=== PATIENT | female | born 1955 | race Hispanic/Latino ===

== ENCOUNTER 2017-01-16 12:48 | Emergency (ER) | payer MEDICARE | END 2017-01-16 14:43 | disposition left against medical advice (07) | LOC: ERS 12:48 | DX: Z53.21 Procedure and treatment not carried out due to patient leaving prior to being seen by health care provider (principal) ==

== ENCOUNTER 2017-11-20 13:43 | Outpatient (CLI) | payer MEDICARE | END 2017-11-20 13:44 | disposition home or self-care (01) | LOC: BICMAMMO 13:43 | PROVIDERS: ATTEND Internal Medicine | DX: Z12.31 Encounter for screening mammogram for malignant neoplasm of breast (principal); N64.89 Other specified disorders of breast | CPT/HCPCS: 77063; 77067 ==

== ENCOUNTER 2017-12-21 12:24 | Outpatient (CLI) | payer MEDICARE | END 2017-12-21 12:25 | disposition home or self-care (01) | LOC: BICMAMMO 12:24 | PROVIDERS: ATTEND Internal Medicine | DX: R92.2 Inconclusive mammogram (principal) | CPT/HCPCS: 77065; G0279 ==

== ENCOUNTER 2018-09-04 11:18 | Observation (INO) | payer MEDICARE ==
[2018-09-04 12:07] LABS: #Eosinphils 0.1 thou/uL (0.0-0.7); #Lymphocytes 1.8 thou/uL (1.20-3.40); #Monocytes 0.5 thou/uL (0.11-0.59); %Basophils 0.3 % (0.0-1.0); %Eosinophils 0.7 % (0.0-10.0); %Lymphocytes 18.9 % (21.0-51.0); %Monocytes 5.1 % (0.0-10.0); Hemoglobin 16.3 g/dL (12.0-16.0); Mean Corpuscular HGB CONC 33.7 g/dL (32.0-36.0); Mean Corpuscular Hemoglobin 31.7 pg (27.0-31.0); Mean Corpuscular Volume 94.3 fL (78.0-98.0); Mean Platelet Volume 8.2 fL (7.4-10.4); Platelet Count 181 thou/uL (130-400); RBC Distribution Width 12.2 % (11.5-14.5); Red Blood Cell (RBC) Count 5.13 mill/uL (4.20-5.40); White Blood Cell (WBC) Count 9.3 thou/uL (4.8-10.8)
[2018-09-04] MEDS ORDERED: diphenhydrAMINE 50 MG/ML VIAL ONE (12:26)
[2018-09-04] MEDS ORDERED: Prochlorperazine Edisylate 10 MG in Sodium Chloride 0.9% 50 ML IVPB SCH (12:30)
[2018-09-04 12:31] LABS: ALT (SGPT) 32 U/L (8-55); AST (SGOT) 31 U/L (5-34); Albumin 4.2 g/dL (3.4-4.8); Alkaline Phosphatase 80 U/L (40-150); Anion Gap 13 mmol/L (10-20); BUN (Urea Nitrogen) 17 mg/dL (9.8-20.1); Bilirubin, Total 0.5 mg/dL (0.2-1.2); Calc. Creatinine Clearance 0 mL/min (70-130); Calcium 10.1 mg/dL (7.8-10.44); Carbon Dioxide 23 mmol/L (23-31); Chloride 104 mmol/L (98-107); Estimated GFR-MDRD 67; Globulin 4.1 g/dL (2.4-3.5); Glucose 114 mg/dL (80-115); Potassium 3.8 mmol/L (3.5-5.1); Protein, Total 8.3 g/dL (6.0-8.3); Sodium 136 mmol/L (136-145)
--- NOTE | 2018-09-04 13:13 | CT ---
CT BRAIN WITHOUT CONTRAST: HISTORY: Headache. FINDINGS: No evidence of infarct, hemorrhage, midline shift, or abnormal extraaxial fluid collections is seen. The ventricular size is normal, and the basilar cisterns are patent. The bony calvarium is intact. The visualized paranasal sinuses and mastoid air cells are well aerated. IMPRESSION: No CT evidence of acute intracranial process. POS: OFF
[2018-09-04] MEDS ORDERED: Nitroglycerin 2% Ointment 1 INCH/1 GM Packet ONE (13:34)
[2018-09-04] MEDS ORDERED: Acetaminophen 500 MG TAB ONE (13:34)
[2018-09-04 14:01] LABS: Bilirubin Negative (Negative); Blood, Urine Small (Negative); Glucose, Urine (Dipstick) Negative (Negative); Leukocyte Negative (Negative); Nitrite Positive (Negative); Protein, Urine (Dipstick) > or equal to 300 mg/dL (Neg-Trace); Urobilinogen 0.2 mg/dL (Less than 2)
[2018-09-04] MEDS ORDERED: Aspirin Chewable 81 MG TAB ONE (14:05)
--- NOTE | 2018-09-04 14:11 | RAD ---
PORTABLE CHEST ONE VIEW: 09/04/18 at 1:26 p.m. HISTORY: Chest pain, headache, high blood pressure. FINDINGS: Comparison is made with exam of 07/01/16. The heart size is normal. The aorta is tortuous. The lungs are expanded without focal areas of consol idation, pneumothoraces, or pleural effusions. IMPRESSION: No radiographic evidence of acute cardiopulmonary process. POS: OFF
[2018-09-04 14:12] LABS: Clarity Cloudy (Clear)
[2018-09-04 14:14] LABS: Mucous/LPF Rare LPF (<2+); Squamous Epithelial 0-3 HPF (0-3); WBC/HPF 0-3 HPF (0-3)
[2018-09-04 14:23] LABS: Bacteria/HPF 4+ HPF (None Seen)
[2018-09-04] MEDS ORDERED: cefTRIAXone\\ROCEPHIN 1 GM VIAL ONE (14:56)
[2018-09-04] MEDS ORDERED: Sodium Chloride 0.9% 100 ML ONE (14:56)
[2018-09-04] MEDS ORDERED: hydrALAZINE 20 MG/ML VIAL ONE (14:56)
[2018-09-04] MEDS ORDERED: hydrALAZINE 20 MG/ML VIAL SLOW IVP SCH (15:00)
[2018-09-04] MEDS ORDERED: cefTRIAXone\\ROCEPHIN 1 GM in Sodium Chloride 0.9% 100 ML IVPB SCH (15:00)
[2018-09-04 16:15] LABS: Troponin I Less than 0.010 ng/mL (< 0.028)
[2018-09-04 16:54] VITALS: BMI 29.9
[2018-09-04] MEDS ORDERED: Acetaminophen 325 MG TAB PO PRN (18:09)
[2018-09-04] MEDS ORDERED: Ondansetron PF 4 MG/2 ML Vial IVP PRN (18:10)
[2018-09-04] MEDS ORDERED: Amlodipine 10 MG TAB PO SCH (18:15)
[2018-09-04 19:10] LABS: Troponin I Less than 0.010 ng/mL (< 0.028)
--- NOTE | 2018-09-05 00:25 | HP ---
CHIEF COMPLAINT: Elevated blood pressure, chest tightness, and headache. HISTORY OF PRESENT ILLNESS: Ms. Patel is a 63-year-old female with past medical history of hypertension, hyperlipidemia, and anxiety disorder, came because of elevated blood pressure and also headache and felt an episode of chest tightness in the retrosternal area, not associated with any diaphoresis, but associated with some nausea and shortness of breath. The patient's headache started a week ago, constant, also has some photophobia. The patient was recently started on amlodipine for blood pressure, but she did not get the medication. She just got only 2 doses of her at home. Her blood pressure was very high and headache was bothering and she has chest tightness. She decided to go to hospital. In the ER, the patient was evaluated and found to have markedly elevated blood pressure of 201/121. The patient received a dose of hydralazine, aspirin, and a nitroglycerin and blood pressure came down. The patient also was found to urine tract infection and she was given a dose of Rocephin. In view of chest tightness and uncontrolled hypertension, she is being admitted for further evaluation and management. PAST MEDICAL HISTORY: 1. Hypertension. 2. Hyperlipidemia. 3. History of hepatitis C. PAST SURGICAL HISTORY: Nothing significant. CURRENT MEDICATIONS: The patient was supposed to be on, 1. Amlodipine 5 mg daily. 2. Prozac 20 mg daily. ALLERGIES: LISINOPRIL CAUSES COUGH. FAMILY HISTORY: Nothing contributory. SOCIAL HISTORY: The patient lives with family. She smokes one pack a day. She has been smoking for many years. No history of alcohol. REVIEW OF SYSTEMS: CARDIOVASCULAR: Has chest tightness. No shortness of breath. RESPIRATORY: No cough or fever. GASTROINTESTINAL: Has nausea. No vomiting symptoms. NEUROLOGIC: Has headache. No dizziness. PHYSICAL EXAMINATION: GENERAL: The patient is alert, awake, and oriented x3. VITAL SIGNS: Temperature 98, pulse 60, respiratory rate 20, blood pressure initially 200/120, now 160/90. HEENT: Head is atraumatic. Pupils are equal and reactive. Nasopharynx is pale and dry. Hard and soft palate, no lesions. SKIN: Turgor decreased. NECK: Supple. No JVD. LUNGS: Bilateral air entry. No rales. No rhonchi. HEART: S1 and S2 regular. ABDOMEN: Soft. No tenderness. Bowel sounds present. CENTRAL NERVOUS SYSTEM: No focal deficit. EXTREMITIES: No edema. LABORATORY DATA: CBC shows WBC 7.3, hemoglobin 16, hematocrit 48, platelets 180. Metabolic panel; sodium 136, potassium 3.8, chloride 104, CO2 of 23, BUN 17, creatinine 0.9, glucose 104. Troponin less than 0.010. Urinalysis showed bacteria 4+, wbc's 0 to 3, nitrite positive, blood positive. IMAGING STUDIES: Chest x-ray negative. CT scan of the brain unremarkable. EKG showed sinus bradycardia with heart rate of 57, no acute ST-T changes seen. ASSESSMENT: 1. Hypertensive urgency. 2. Chest tightness, rule out myocardial infarction. 3. Urinary tract infection. 4. Headache, possible migraine. 5. History of hepatitis C. 6. Tobacco abuse. 7. Sinus bradycardia. PLAN: 1. Vital signs q.4 hours. 2. Activity, as tolerated. 3. Allergies, lisinopril causes cough. 4. Diet, cardiac. 5. We will start her on amlodipine 10 mg daily. Continue other home medications. 6. Troponin I q.6 x2. 7. Echocardiogram. 8. Cardiolite stress test. 9. Tylenol p.r.n. 10. Zofran p.r.n. 11. Sinus bradycardia will be monitored on telemetry. Job ID: [id number] [facility]
[2018-09-05 08:09] VITALS: TEMP 98.2
[2018-09-05] MEDS ORDERED: hydrALAZINE 25 MG TAB PO SCH ×2 (09:00→15:00)
[2018-09-05] MEDS ORDERED: Aspirin 81 mg Enteric Coated Tablet PO SCH (09:00)
[2018-09-05] MEDS ORDERED: cefTRIAXone\\ROCEPHIN 1 GM in Sodium Chloride 0.9% 100 ML IVPB SCH (09:00)
[2018-09-05] MEDS ORDERED: Amlodipine 10 MG TAB PO SCH (09:00)
[2018-09-05] MEDS ORDERED: FLUoxetine HCl 20 MG CAP PO SCH (09:00)
[2018-09-05] MEDS ORDERED: ADENOSINE 60 MG/20 ML VIAL ONE (09:28)
--- NOTE | 2018-09-05 13:11 | NM ---
EXAM: CARDIAC SPECT HISTORY: Chest pain, hypertension, dyslipidemia, smoker TECHNIQUE: A myocardial perfusion scan was performed using the single isotope 1 day protocol with marcela hnetium 99m sestamibi. [10 mCi] was injected intravenously for the rest exam followed by 30 mCi for the stress study. Pharmacologic stress with adenosine was monitored and interpreted by Dr. Britt FINDINGS: There is a small fixed defect in the distal anterior wall with normal wall thickening and c ontractility, consistent with breast attenuation artifact. No reversible defects are seen. Gated SPECT LVEF: 67% Wall motion exam: Normal IMPRESSION: No evidence of reversible ischemia
[2018-09-05 15:59] VITALS: BP 156/87
--- NOTE | 2018-09-11 15:43 | EKG ---
Test Reason : HTN Blood Pressure : / mmHG Vent. Rate : 057 BPM Atrial Rate : 057 BPM P-R Int : 158 ms QRS Dur : 088 ms QT Int : 448 ms P-R-T Axes : 065 029 057 degrees QTc Int : 436 ms Sinus bradycardia Possible Left atrial enlargement Borderline ECG Confirmed by LOGAN WALKER M.D. ([id number]), editor news ANGI MANCIA ([id number]) on 09/11/2018 3:43:22 PM Referred By: Confirmed By:LOGAN WALKER M.D.
== END 2018-09-05 16:50 | disposition home or self-care (01) ==
LOC: ERS 11:18 → 2SW 16:47
PROVIDERS: ADMIT Internal Medicine; ATTEND Internal Medicine
DX: R07.2 Precordial pain (principal); I10 Essential (primary) hypertension; E78.5 Hyperlipidemia, unspecified; F41.9 Anxiety disorder, unspecified; F17.210 Nicotine dependence, cigarettes, uncomplicated; I16.0 Hypertensive urgency; N39.0 Urinary tract infection, site not specified; R00.1 Bradycardia, unspecified; Z79.82 Long term (current) use of aspirin; Z79.899 Other long term (current) drug therapy; Z88.5 Allergy status to narcotic agent; Z88.8 Allergy status to other drugs, medicaments and biological substances
CPT/HCPCS: 70450; 71045; 78452; 80053; 84484 ×2; 85025; 93005; 93017; 96365; 96366; 96375; 99285; A9500; G0378 ×3; 36415; 81003; 81015; J0153; J0360; J0696; J0780; J1200; J3490

== ENCOUNTER 2018-11-09 08:26 | Outpatient (CLI) | payer MEDICARE ==
--- NOTE | 2018-11-09 12:01 | ULT ---
PELVIC ULTRASOUND: HISTORY: Postmenopausal bleeding. TECHNIQUE: Real-time imaging of the pelvis was obtained transvaginally. FINDINGS: This shows a uterus measuring 6.9 cm in length. The endometrium is thickened at 1.1 cm. The right and left ovaries are well visualized and unremarkable. On Doppler evaluation with spectral analysis normal flow is shown to the adnexa. Several nabothian cysts are incidentally seen. IMPRESSION: 1. Thickened endometrium. No fibroids identified. 2. Nabothian cysts. POS: TPC
== END 2018-11-09 08:27 | disposition home or self-care (01) ==
LOC: BICULT 08:26
PROVIDERS: ATTEND Nurse Practitioner Family
DX: N95.0 Postmenopausal bleeding (principal); R93.89 Abnormal findings on diagnostic imaging of other specified body structures; N88.8 Other specified noninflammatory disorders of cervix uteri
CPT/HCPCS: 76856

== ENCOUNTER 2019-03-06 08:56 | Outpatient (CLI) | payer MEDICARE | END 2019-03-06 08:57 | disposition home or self-care (01) | LOC: LABBT 08:56 | PROVIDERS: ATTEND Obstetrics & Gynecology | DX: Z01.812 Encounter for preprocedural laboratory examination (principal); N85.01 Benign endometrial hyperplasia | CPT/HCPCS: 93005; 93010 ==

== ENCOUNTER 2019-03-12 06:57 | Day surgery (SDC) | payer MEDICARE ==
[2019-03-06 14:48] VITALS: BMI 31.1
[2019-03-06 16:09] LABS: Hemoglobin 15.7 g/dL (12.0-16.0); Mean Corpuscular HGB CONC 32.9 g/dL (32.0-36.0); Mean Corpuscular Hemoglobin 30.3 pg (27.0-31.0); Mean Corpuscular Volume 92.3 fL (78.0-98.0); Mean Platelet Volume 8.4 fL (7.4-10.4); Platelet Count 175 thou/uL (130-400); RBC Distribution Width 11.9 % (11.5-14.5); Red Blood Cell (RBC) Count 5.17 mill/uL (4.20-5.40); White Blood Cell (WBC) Count 6.8 thou/uL (4.8-10.8)
--- NOTE | 2019-03-11 21:03 | HP ---
REASON FOR ADMISSION: Simple hyperplasia. SCHEDULED PROCEDURE: D and C hysteroscopy. HISTORY OF PRESENT ILLNESS: Ms. Patel is a 63-year-old G3, P2, AB1, referred for postmenopausal bleeding from Prema Rao at [facility]. The patient reported several episodes of postmenopausal bleeding. Ultrasound revealed a thickened endometrium at approximately 11 mm. Endometrial biopsy in the office revealed simple hyperplasia without atypia. Considering a 5% to 10% possibility of occult malignancy with this finding, decision was made to proceed with D and C hysteroscopy. [employer] TECHNICIAN HISTORY: x2, SAB x1, negative Pap. PAST MEDICAL HISTORY: Significant for hypertension. SURGICAL HISTORY: Denies. ALLERGIES: CODEINE. MEDICATIONS: 1. Hydralazine. 2. Prozac. 3. Aspirin. SOCIAL HISTORY: Denies tobacco, alcohol, or IV drug use. FAMILY HISTORY: Noncontributory. REVIEW OF SYSTEMS: Noncontributory. PHYSICAL EXAMINATION: GENERAL: female, no acute distress. HEENT: Within normal limits. LUNGS: Clear to auscultation bilaterally. HEART: Regular rate and rhythm. ABDOMEN: Soft and nontender without rebound or guarding. Vulva without lesions. Vagina, discharge. Cervix, parous and atrophic. Uterus, anteverted and eight-week size. Adnexa, no masses bilaterally. EXTREMITIES: No clubbing, cyanosis, or edema. LABORATORY DATA: Ultrasound revealed a uterus measuring 7 x 6 x 4 cm with 11 mm endometrial thickness. Normal right and left adnexa. No free fluid noted. Endometrium appeared grossly thickened on ultrasound, possible polyp. Endometrial biopsy revealed simple hyperplasia without atypia and endometrial polyp. IMPRESSION: Postmenopausal bleeding, thickened endometrium with simple hyperplasia on EMB. PLAN: D and C, hysteroscopy. The patient understands risks and benefits of procedure including bleeding, infection, and perforation. We will administer appropriate antibiotic and DVT prophylaxis. Job ID: [id number]
[2019-03-12] MEDS ORDERED: hydrALAZINE 20 MG/ML VIAL ONE ×3 (08:16→11:45)
[2019-03-12] MEDS ORDERED: Fentanyl 100 MCG/2 ML VIAL ONE ×2 (09:38→11:16)
--- NOTE | 2019-03-12 11:25 | OP ---
DATE OF PROCEDURE: 03/12/2019 PREOPERATIVE DIAGNOSES: Postmenopausal bleeding with EMB with simple hyperplasia and endometrial polyp. POSTOPERATIVE DIAGNOSES: Postmenopausal bleeding with EMB with simple hyperplasia and endometrial polyp. PROCEDURE PERFORMED: D and C, hysteroscopy. ANESTHESIA: General endotracheal. ESTIMATED BLOOD LOSS: Less than 10 mL. COMPLICATIONS: None. DRAINS: I and O cath preoperatively. FINDINGS: 1. Pre and post sound of 8 cm. 2. Endometrial cavity of bilateral tubal ostia identified. 3. Approximately 15 mm endocavitary polyp noted in the right lateral aspect of the endometrial cavity removed. 4. No evidence of perforation. DISPOSITION: Recovery room in good condition. DESCRIPTION OF PROCEDURE: Preoperatively, the patient was noted to have significant hypertension to 190s over 100. She had been off her hydralazine for 2 doses and responded well to three doses of IV hydralazine administered by Anesthesia. She underwent anesthesia induction, was prepped and draped in usual manner in dorsal lithotomy. Sliding speculum was placed in vagina, cervix was identified and grasped with single-tooth tenaculum. Sounded to 8 cm, fairly dilated up to appropriate level. Hysteroscope was introduced with normal saline as distention media. Findings as noted. The operative findings were noted and were photo documented. Both tubal ostia were identified. No evidence of uterine perforation was noted. Hysteroscope was removed and serial curettings was carried out x2 throughout the uterine cavity retrieving the specimen onto a Telfa and sending for pathologic analysis. After the second pass, hysteroscope was introduced and good photo documentation of complete sampling of the endometrial cavity and removal of polyp were noted. Post sound was 8 cm. Tenaculum removed and no significant bleeding noted. The speculum was removed and the patient was awakened, extubated, and taken to recovery room in good condition. The patient's need for followup with primary care regarding her blood pressure was communicated to the patient's daughters postoperatively. Job ID: [id number]
[2019-03-12] MEDS ORDERED: PROPOFOL 200 MG/20 ML VIAL ONE (12:55)
[2019-03-12] MEDS ORDERED: PHENYLEPHRINE-NS 100 MCG/ML 10 ML SYRINGE ONE (12:55)
[2019-03-12] MEDS ORDERED: Lidocaine 1% PF 5 ML VIAL ONE (12:55)
[2019-03-12] MEDS ORDERED: Ondansetron PF 4 MG/2 ML Vial ONE (12:55)
[2019-03-12] MEDS ORDERED: Glycopyrrolate 0.2 MG/ML 5 ML SYRINGE ONE (12:55)
[2019-03-12] MEDS ORDERED: Dexamethasone 20 MG/5 ML VIAL ONE (12:55)
== END 2019-03-12 13:50 | disposition home or self-care (01) ==
LOC: SDC 06:57
PROVIDERS: ATTEND Obstetrics & Gynecology
PROC: 0UDB8ZZ Extraction of Endometrium, Via Natural or Artificial Opening Endoscopic (ICD-10-PCS; principal; 2019-03-12)
DX: N85.01 Benign endometrial hyperplasia (principal); N95.0 Postmenopausal bleeding; I10 Essential (primary) hypertension; Z79.82 Long term (current) use of aspirin; Z79.899 Other long term (current) drug therapy; Z88.5 Allergy status to narcotic agent
CPT/HCPCS: 36415; 85027; 86850; 86900; 86901; 88305; J0360; J0690; J1100; J2001; J2405; J2704; J3010

== ENCOUNTER 2020-01-04 07:38 | Emergency (ER) | payer MEDICARE ==
[2020-01-04] MEDS ORDERED: Tranexamic Acid 1,000 MG/10 ML VIAL ONE (08:30)
[2020-01-04] MEDS ORDERED: Silver Nitrate Application 1 EACH ONE (08:33)
[2020-01-04 08:41] LABS: #Basophils 0.1 thou/uL (0.0-0.2); #Eosinphils 0.2 thou/uL (0.0-0.7); #Lymphocytes 1.6 thou/uL (1.20-3.40); #Monocytes 0.7 thou/uL (0.11-0.59); #Neutrophils 5.5 thou/uL (1.40-6.50); %Basophils 0.9 % (0.0-1.0); %Eosinophils 2.6 % (0.0-10.0); %Lymphocytes 19.5 % (21.0-51.0); %Monocytes 8.1 % (0.0-10.0); %Neutrophils 68.9 % (42.0-75.0); Hemoglobin 14.4 g/dL (12.0-16.0); Mean Corpuscular HGB CONC 33.2 g/dL (32.0-36.0); Mean Corpuscular Hemoglobin 30.9 pg (27.0-31.0); Mean Corpuscular Volume 93.2 fL (78.0-98.0); Mean Platelet Volume 7.9 fL (7.4-10.4); Platelet Count 197 thou/uL (130-400); RBC Distribution Width 12.1 % (11.5-14.5); Red Blood Cell (RBC) Count 4.65 mill/uL (4.20-5.40)
[2020-01-04] MEDS ORDERED: Oxymetazoline HCl 0.05% (30 ML BOT) NS SCH (09:00)
[2020-01-04] MEDS ORDERED: Bacitracin 1 PK ONE (10:02)
== END 2020-01-04 10:27 | disposition home or self-care (01) ==
LOC: ERS 07:38
DX: R04.0 Epistaxis (principal); I10 Essential (primary) hypertension; F17.210 Nicotine dependence, cigarettes, uncomplicated; Z79.899 Other long term (current) drug therapy
CPT/HCPCS: 30901; 36415; 85025

== ENCOUNTER 2020-01-08 01:06 | Emergency (ER) | payer MEDICARE ==
[2020-01-08] MEDS ORDERED: Oxymetazoline HCl 0.05% (30 ML BOT) ONE (02:23)
[2020-01-08 02:32] LABS: #Basophils 0.1 thou/uL (0.0-0.2); #Eosinphils 0.2 thou/uL (0.0-0.7); #Neutrophils 6.2 thou/uL (1.40-6.50); %Basophils 0.7 % (0.0-1.0); %Eosinophils 1.8 % (0.0-10.0); %Lymphocytes 21.2 % (21.0-51.0); %Monocytes 10.2 % (0.0-10.0); Hemoglobin 13.3 g/dL (12.0-16.0); Mean Corpuscular Hemoglobin 31.9 pg (27.0-31.0); Mean Corpuscular Volume 93.7 fL (78.0-98.0); Platelet Count 202 thou/uL (130-400); RBC Distribution Width 12.3 % (11.5-14.5); Red Blood Cell (RBC) Count 4.17 mill/uL (4.20-5.40); White Blood Cell (WBC) Count 9.3 thou/uL (4.8-10.8)
== END 2020-01-08 04:07 | disposition home or self-care (01) ==
LOC: ERS 01:06
DX: R04.0 Epistaxis (principal); I10 Essential (primary) hypertension; F17.210 Nicotine dependence, cigarettes, uncomplicated; Z79.899 Other long term (current) drug therapy
CPT/HCPCS: 36415; 85025; 99283

== ENCOUNTER 2020-10-13 10:11 | Outpatient (CLI) | payer MEDICARE | END 2020-10-13 10:12 | disposition home or self-care (01) | LOC: BICMAMMO 10:11 | PROVIDERS: ATTEND Nurse Practitioner Family | DX: N63.20 Unspecified lump in the left breast, unspecified quadrant (principal) | CPT/HCPCS: 76642; 77066; G0279 ==

== ENCOUNTER → 2020-10-22 | Day surgery (SDC) | payer MEDICARE | LOC: BICULT 12:43 | PROVIDERS: ATTEND Nurse Practitioner Family | PROC: 0H9U3ZX Drainage of Left Breast, Percutaneous Approach, Diagnostic (ICD-10-PCS; principal; 2020-10-22) | DX: C50.812 Malignant neoplasm of overlapping sites of left female breast (principal); Z88.5 Allergy status to narcotic agent | CPT/HCPCS: 19083; 88305; 88341; 88342 ==

== ENCOUNTER 2020-11-13 13:49 | Outpatient (CLI) | payer MEDICARE | END 2020-11-13 13:50 | disposition home or self-care (01) | LOC: ULT 13:49 | PROVIDERS: ATTEND Internal Medicine Hematology & Oncology | DX: Z51.11 Encounter for antineoplastic chemotherapy (principal); C50.312 Malignant neoplasm of lower-inner quadrant of left female breast; Z79.899 Other long term (current) drug therapy | CPT/HCPCS: 93306 ==

== ENCOUNTER 2020-11-20 16:45 | Outpatient (CLI) | payer MEDICARE ==
[2020-11-20 17:53] LABS: #Basophils 0.1 10x3/uL (0.0-0.2); #Eosinphils 0.1 10x3/uL (0.0-0.5); #Monocytes 0.6 10x3/uL (0.0-1.1); #Neutrophils 3.6 10x3/uL (1.5-8.4); %Eosinophils 1.5 % (0.0-6.0); %Lymphocytes 35.6 % (18.0-47.0); %Monocytes 8.2 % (0.0-10.0); %Neutrophils 53.4 % (40.0-75.0); Hemoglobin 13.1 g/dL (12.0-15.5); Mean Corpuscular HGB CONC 32.7 g/dL (32.0-36.0); Mean Corpuscular Hemoglobin 29.7 pg (27.0-33.0); Mean Corpuscular Volume 90.9 fl (81.6-98.3); Mean Platelet Volume 10.1 fl (7.4-10.4); Platelet Count 192 10x3/uL (150-450); RBC Distribution Width 13.8 % (11.5-14.5); Red Blood Cell (RBC) Count 4.41 10x6/uL (3.90-5.03); White Blood Cell (WBC) Count 6.7 10x3/uL (3.5-10.5)
[2020-11-20 18:04] LABS: Anion Gap 12 mmol/L (10-20); BUN (Urea Nitrogen) 22 mg/dL (9.8-20.1); Calc. Creatinine Clearance 0 mL/min (70-130); Calcium 10.1 mg/dL (7.8-10.44); Carbon Dioxide 22 mmol/L (23-31); Chloride 107 mmol/L (98-107); Glucose 144 mg/dL (80-115); Potassium 3.8 mmol/L (3.5-5.1); Sodium 137 mmol/L (136-145)
[2020-11-21 16:49] LABS: SARS-CoV-2 PCR by NAA Not Detected (NotDetected)
== END 2020-11-20 16:46 | disposition home or self-care (01) ==
LOC: LABBT 16:45
PROVIDERS: ATTEND Surgery
DX: Z01.818 Encounter for other preprocedural examination (principal); Z20.822 Contact with and (suspected) exposure to COVID-19
CPT/HCPCS: 71046; 80048; 85025; U0003; U0005

== ENCOUNTER 2020-11-24 10:01 | Day surgery (SDC) | payer MEDICARE ==
[2020-11-23 11:27] VITALS: BMI 31.4
[2020-11-24] MEDS ORDERED: Bupivacaine 0.25% HCL 30 ML VIAL ONE (10:06)
[2020-11-24] MEDS ORDERED: Lidocaine 1% w/Epinephrine 1:100K 20 ML VIAL ONE (10:06)
[2020-11-24] MEDS ORDERED: Heparin 10,000 UNITS/ 10 ML VIAL ONE (10:06)
[2020-11-24] MEDS ORDERED: ceFAZolin 2 GM/DEX 5% 100 ML BAG ONE (10:15)
[2020-11-24] MEDS ORDERED: Acetaminophen 500 MG TAB ONE (10:15)
[2020-11-24] MEDS ORDERED: Ketorolac Tromethamine 30 MG/ML VIAL ONE (10:15)
[2020-11-24] MEDS ORDERED: Fentanyl 100 MCG/2 ML VIAL ONE (11:50)
[2020-11-24] MEDS ORDERED: Midazolam HCl 2 mg/2 ml Vial ONE (11:50)
[2020-11-24] MEDS ORDERED: Famotidine/PF 20 mg/2ml Vial ONE (11:50)
[2020-11-24] MEDS ORDERED: PROPOFOL 60 ML ONE (11:53)
[2020-11-24] MEDS ORDERED: Lidocaine 1% PF 5 ML VIAL ONE (12:02)
[2020-11-24] MEDS ORDERED: Ondansetron PF 4 MG/2 ML Vial ONE (12:02)
[2020-11-24] MEDS ORDERED: PROPOFOL 200 MG/20 ML VIAL ONE (12:02)
== END 2020-11-24 14:10 | disposition home or self-care (01) ==
LOC: SDC 10:01
PROVIDERS: ATTEND Surgery
PROC: 02HV33Z Insertion of Infusion Device into Superior Vena Cava, Percutaneous Approach (ICD-10-PCS; principal; 2020-11-24)
DX: C50.812 Malignant neoplasm of overlapping sites of left female breast (principal); E78.00 Pure hypercholesterolemia, unspecified; I10 Essential (primary) hypertension; F17.210 Nicotine dependence, cigarettes, uncomplicated; Z88.5 Allergy status to narcotic agent; Z79.899 Other long term (current) drug therapy; Z98.890 Other specified postprocedural states; Z17.1 Estrogen receptor negative status [ER-]
CPT/HCPCS: 71045; C1788; J1642; J1644; J1885; J2250; J2405; J2704; J3010; S0020; S0028

== ENCOUNTER 2021-01-05 08:54 | Day surgery (SDC) | payer MEDICARE ==
[2021-01-05] MEDS ORDERED: diphenhydrAMINE 50 MG in Sodium Chloride 0.9% 50 ML IVPB PRN (09:23)
[2021-01-05] MEDS ORDERED: CARBOPLATIN IVPB SCH (09:30)
[2021-01-05] MEDS ORDERED: PALONOSETRON HCL 0.05 MG/ML 5 ML VIAL IVP SCH (09:30)
[2021-01-05] MEDS ORDERED: SODIUM CHLORIDE 0.9% IVPB SCH ×3 (09:30)
[2021-01-05] MEDS ORDERED: DOCETAXEL IVPB SCH (09:30)
[2021-01-05] MEDS ORDERED: TRASTUZUMAB ANNS IVPB SCH (09:30)
[2021-01-05] MEDS ORDERED: Pertuzumab 840 MG in Sodium Chloride 0.9% 250 ML 250 ML IVPB SCH (09:45)
[2021-01-05 09:56] VITALS: BP 134/67; TEMP 98.1
[2021-01-05] MEDS ORDERED: Sodium Chloride 0.9% 100 ML BAG ONE (11:02)
[2021-01-05] MEDS ORDERED: PALONOSETRON HCL 0.05 MG/ML 5 ML VIAL ONE (11:02)
== END 2021-01-05 16:38 | disposition home or self-care (01) ==
LOC: ONC/OP 08:54
PROVIDERS: ATTEND Internal Medicine Hematology & Oncology
DX: Z51.11 Encounter for antineoplastic chemotherapy (principal); C50.312 Malignant neoplasm of lower-inner quadrant of left female breast; Z88.5 Allergy status to narcotic agent
CPT/HCPCS: 96375; 96413; 96417; J1100; J1200; J1642; J2469; J3490; J7050; J9045; J9171; Q5117

== ENCOUNTER 2021-01-06 13:06 | Day surgery (SDC) | payer MEDICARE ==
[2021-01-06] MEDS ORDERED: PEGFILGRASTIM-JMDB 6 MG/0.6 ML SYRINGE ONE (13:08)
[2021-01-06 13:19] VITALS: BP 124/67; TEMP 98.2
== END 2021-01-06 13:20 | disposition home or self-care (01) ==
LOC: ONC/OP 13:06
PROVIDERS: ATTEND Internal Medicine Hematology & Oncology
DX: Z76.89 Persons encountering health services in other specified circumstances (principal); C50.312 Malignant neoplasm of lower-inner quadrant of left female breast; Z88.5 Allergy status to narcotic agent
CPT/HCPCS: 96372; Q5108

== ENCOUNTER 2021-01-26 09:30 | Day surgery (SDC) | payer MEDICARE ==
[~2021-01-26 09:30] MED LIST: CARBOPLATIN IVPB SCH; DOCETAXEL IVPB SCH; PALONOSETRON HCL 0.05 MG/ML 5 ML VIAL IVP SCH; Pertuzumab 420 MG in Sodium Chloride 0.9% 250 ML 250 ML IVPB SCH; Pertuzumab 840 MG in Sodium Chloride 0.9% 250 ML 250 ML IVPB SCH; SODIUM CHLORIDE 0.9% IVPB SCH; TRASTUZUMAB ANNS IVPB SCH
[2021-01-26 10:01] VITALS: BP 177/85; TEMP 98
[2021-01-26] MEDS ORDERED: Sodium Chloride 0.9% 10 ML ONE (10:28)
[2021-01-26] MEDS ORDERED: PALONOSETRON HCL 0.05 MG/ML 5 ML VIAL ONE (10:28)
== END 2021-01-26 15:43 | disposition home or self-care (01) ==
LOC: ONC/OP 09:30
PROVIDERS: ATTEND Internal Medicine Hematology & Oncology
DX: Z51.11 Encounter for antineoplastic chemotherapy (principal); C50.312 Malignant neoplasm of lower-inner quadrant of left female breast; Z88.5 Allergy status to narcotic agent
CPT/HCPCS: 96375; 96413; 96417; J1100; J1642; J2469; J7050; J9045; J9171; Q5117

== ENCOUNTER → 2021-01-27 | Day surgery (SDC) | payer MEDICARE ==
[~2021-01-27] MED LIST changes: -CARBOPLATIN IVPB SCH; -DOCETAXEL IVPB SCH; -PALONOSETRON HCL 0.05 MG/ML 5 ML VIAL IVP SCH; +PEGFILGRASTIM-JMDB 6 MG/0.6 ML SYRINGE ONE; +PEGFILGRASTIM-JMDB 6 MG/0.6 ML SYRINGE SQ SCH; -Pertuzumab 420 MG in Sodium Chloride 0.9% 250 ML 250 ML IVPB SCH; -Pertuzumab 840 MG in Sodium Chloride 0.9% 250 ML 250 ML IVPB SCH; -SODIUM CHLORIDE 0.9% IVPB SCH; -TRASTUZUMAB ANNS IVPB SCH
[2021-01-27 14:50] VITALS: BP 143/70; TEMP 98.3
== END ==
LOC: ONC/OP 14:38
PROVIDERS: ATTEND Internal Medicine Hematology & Oncology
DX: Z76.89 Persons encountering health services in other specified circumstances (principal); C50.312 Malignant neoplasm of lower-inner quadrant of left female breast; Z88.5 Allergy status to narcotic agent
CPT/HCPCS: 96372; Q5108

== ENCOUNTER 2021-02-05 15:22 | Inpatient (IN) | payer MEDICARE ==
[2021-02-05 16:07] LABS: #Lymphocytes 1.6 thou/uL (1.20-3.40); #Monocytes 0.8 thou/uL (0.11-0.59); #Neutrophils 10.9 thou/uL (1.40-6.50); %Basophils 0.2 % (0.0-1.0); %Eosinophils 0.1 % (0.0-10.0); %Lymphocytes 12.1 % (21.0-51.0); %Monocytes 5.9 % (0.0-10.0); %Neutrophils 81.7 % (42.0-75.0); Hemoglobin 12.9 g/dL (12.0-16.0); Mean Corpuscular HGB CONC 32.8 g/dL (32.0-36.0); Mean Corpuscular Hemoglobin 31.4 pg (27.0-31.0); Mean Corpuscular Volume 95.7 fL (78.0-98.0); RBC Distribution Width 13.6 % (11.5-14.5); Red Blood Cell (RBC) Count 4.11 mill/uL (4.20-5.40); White Blood Cell (WBC) Count 13.3 thou/uL (4.8-10.8)
[2021-02-05 16:29] LABS: ALT (SGPT) 24 U/L (8-55); AST (SGOT) 18 U/L (5-34); Albumin 3.6 g/dL (3.4-4.8); Alkaline Phosphatase 105 U/L (40-110); Anion Gap 11 mmol/L (10-20); BUN (Urea Nitrogen) 12 mg/dL (9.8-20.1); Bilirubin, Total 0.4 mg/dL (0.2-1.2); Calc. Creatinine Clearance 0 mL/min (70-130); Calcium 9.6 mg/dL (7.8-10.44); Carbon Dioxide 24 mmol/L (23-31); Chloride 106 mmol/L (98-107); Globulin 3.2 g/dL (2.4-3.5); Glucose 103 mg/dL (80-115); Potassium 3.9 mmol/L (3.5-5.1); Protein, Total 6.8 g/dL (5.8-8.1); Sodium 137 mmol/L (136-145)
[2021-02-05 16:31] LABS: Mean Platelet Volume 7.9 fL (7.4-10.4); Platelet Count 116 thou/uL (130-400); Platelet Morphology Comment Appears Decreased; RBC Morphology Normal
[2021-02-05] MEDS ORDERED: hydrALAZINE 20 MG/ML VIAL ONE (18:49)
[2021-02-05] MEDS ORDERED: Cefepime 2 GM VIAL ONE (18:49)
[2021-02-05] MEDS ORDERED: Vancomycin 1 GM/200 ML BAG ONE (19:34)
[2021-02-05] MEDS ORDERED: Senokot S 8.6-50 MG TAB PO PRN (21:14)
[2021-02-05] MEDS ORDERED: Ondansetron PF 4 MG/2 ML Vial IVP PRN (21:14)
[2021-02-05] MEDS ORDERED: Calcium Carbonate 500 MG ChewTAB PO PRN (21:14)
[2021-02-05] MEDS ORDERED: Bisacodyl 5 MG TAB PO PRN (21:14)
[2021-02-05] MEDS ORDERED: Guaifenesin DM 100-10/5 ML UDCUP PO PRN (21:14)
[2021-02-05] MEDS ORDERED: hydrALAZINE 20 MG/ML VIAL SLOW IVP PRN (21:18)
[2021-02-05 23:02] VITALS: BMI 31.7
[2021-02-05] MEDS ORDERED: Heparin 5,000 UNITS/ML VIAL SC SCH (23:45)
[2021-02-06] MEDS: Heparin 5,000 UNITS/ML VIAL SC SCH ×4 (00:09→20:14)
[2021-02-06] MEDS: Sodium Chloride 0.9% 1,000 ML IV SCH ×4 (00:09→23:33)
[2021-02-06] MEDS: Nicotine 21 MG PATCH TD SCH ×2 (00:09→20:15)
[2021-02-06] MEDS: ceFAZolin Sodium/D5W 2 GM in Premix Bag 1 BAG IVPB SCH ×3 (02:30→17:38)
[2021-02-06 07:06] LABS: ALT (SGPT) 20 U/L (8-55); AST (SGOT) 16 U/L (5-34); Albumin 3.1 g/dL (3.4-4.8); Alkaline Phosphatase 83 U/L (40-110); Anion Gap 9 mmol/L (10-20); BUN (Urea Nitrogen) 9 mg/dL (9.8-20.1); Bilirubin, Total 0.4 mg/dL (0.2-1.2); Calc. Creatinine Clearance 89 mL/min (70-130); Carbon Dioxide 24 mmol/L (23-31); Chloride 108 mmol/L (98-107); Globulin 2.8 g/dL (2.4-3.5); Glucose 99 mg/dL (80-115); Potassium 3.5 mmol/L (3.5-5.1); Protein, Total 5.9 g/dL (5.8-8.1); Sodium 137 mmol/L (136-145)
[2021-02-06 07:23] LABS: #Lymphocytes 1.2 thou/uL (1.20-3.40); #Monocytes 0.7 thou/uL (0.11-0.59); #Neutrophils 6.1 thou/uL (1.40-6.50); %Basophils 0.1 % (0.0-1.0); %Eosinophils 0.2 % (0.0-10.0); %Lymphocytes 15.4 % (21.0-51.0); %Monocytes 8.6 % (0.0-10.0); %Neutrophils 75.7 % (42.0-75.0); Hemoglobin 11.8 g/dL (12.0-16.0); Mean Corpuscular Hemoglobin 31.2 pg (27.0-31.0); Mean Corpuscular Volume 94.5 fL (78.0-98.0); Mean Platelet Volume 7.9 fL (7.4-10.4); Platelet Count 110 thou/uL (130-400); RBC Distribution Width 13.5 % (11.5-14.5)
[2021-02-06] MEDS: Vancomycin 1 GM in Premix Bag 1 BAG IVPB SCH ×2 (08:30→20:13)
[2021-02-06] MEDS: Famotidine/PF 20 mg/2ml Vial SLOW IVP SCH ×2 (08:33→20:14)
[2021-02-06] MEDS ORDERED: FLU VACC QS2021-22(65YR UP)/PF 240 MCG/0.7 ML SYRINGE IM ONE (09:00)
[2021-02-06 11:53] LABS: SARS-CoV-2 PCR by NAA Not Detected (NotDetected)
[2021-02-06] MEDS: Acetaminophen 325 MG TAB PO PRN (20:15)
[2021-02-06] MEDS: Melatonin 3 MG TAB PO PRN (20:16)
[2021-02-07] MEDS: ceFAZolin Sodium/D5W 2 GM in Premix Bag 1 BAG IVPB SCH ×3 (01:23→17:29)
[2021-02-07 08:01] LABS: Vancomycin, Trough 13.5 ug/mL
[2021-02-07] MEDS: Heparin 5,000 UNITS/ML VIAL SC SCH ×4 (08:34→20:28)
[2021-02-07] MEDS: Famotidine/PF 20 mg/2ml Vial SLOW IVP SCH ×2 (08:34→20:27)
[2021-02-07] MEDS: Vancomycin 1 GM in Premix Bag 1 BAG IVPB SCH (08:43)
[2021-02-07] MEDS: VANCOMYCIN 1.25 GM/250 ML BAG 1.25 GM in Premix Bag 1 BAG IVPB SCH ×2 (11:17→20:29)
[2021-02-07] MEDS ORDERED: Magnevist 469MG/ML 20 ML VIAL ONE (11:51)
[2021-02-07] MEDS: Sodium Chloride 0.9% 1,000 ML IV SCH (13:30)
[2021-02-07] MEDS: Acetaminophen 325 MG TAB PO PRN (20:26)
[2021-02-07] MEDS: Melatonin 3 MG TAB PO PRN (20:26)
[2021-02-07] MEDS: Nicotine 21 MG PATCH TD SCH (20:28)
[2021-02-08] MEDS: ceFAZolin Sodium/D5W 2 GM in Premix Bag 1 BAG IVPB SCH ×3 (01:15→18:18)
[2021-02-08] MEDS: Sodium Chloride 0.9% 1,000 ML IV SCH ×3 (02:04→18:22)
[2021-02-08 07:15] LABS: Anion Gap 10 mmol/L (10-20); BUN (Urea Nitrogen) 10 mg/dL (9.8-20.1); Calc. Creatinine Clearance 89 mL/min (70-130); Calcium 8.9 mg/dL (7.8-10.44); Carbon Dioxide 23 mmol/L (23-31); Chloride 112 mmol/L (98-107); Glucose 98 mg/dL (80-115); Potassium 3.6 mmol/L (3.5-5.1); Sodium 141 mmol/L (136-145)
[2021-02-08 07:19] LABS: #Lymphocytes 1.4 thou/uL (1.20-3.40); #Monocytes 0.6 thou/uL (0.11-0.59); #Neutrophils 3.2 thou/uL (1.40-6.50); %Basophils 0.6 % (0.0-1.0); %Eosinophils 0.2 % (0.0-10.0); %Lymphocytes 26.3 % (21.0-51.0); %Monocytes 11.9 % (0.0-10.0); %Neutrophils 60.9 % (42.0-75.0); Hemoglobin 10.9 g/dL (12.0-16.0); Mean Corpuscular HGB CONC 33.9 g/dL (32.0-36.0); Mean Corpuscular Hemoglobin 32.1 pg (27.0-31.0); Mean Corpuscular Volume 94.6 fL (78.0-98.0); Mean Platelet Volume 7.9 fL (7.4-10.4); Platelet Count 115 thou/uL (130-400); RBC Distribution Width 13.7 % (11.5-14.5); White Blood Cell (WBC) Count 5.3 thou/uL (4.8-10.8)
[2021-02-08] MEDS: Multivitamin W/ Minerals 1 TAB PO SCH (08:36)
[2021-02-08] MEDS: hydrALAZINE 25 MG TAB PO SCH (08:36)
[2021-02-08] MEDS: Amlodipine 5 MG TAB PO SCH (08:36)
[2021-02-08] MEDS: FLUoxetine HCl 20 MG CAP PO SCH (08:37)
[2021-02-08] MEDS: Losartan 25 MG TAB PO SCH (08:37)
[2021-02-08] MEDS: Famotidine/PF 20 mg/2ml Vial SLOW IVP SCH ×2 (08:38→20:11)
[2021-02-08] MEDS: VANCOMYCIN 1.25 GM/250 ML BAG 1.25 GM in Premix Bag 1 BAG IVPB SCH ×2 (08:38→21:19)
[2021-02-08] MEDS: Heparin 5,000 UNITS/ML VIAL SC SCH ×3 (08:52→20:11)
[2021-02-08] MEDS ORDERED: Non-Formulary Item 1 EACH (Losartan Potassium [Cozaar] 100 MG Tablet) PO SCH (09:00)
[2021-02-08] MEDS ORDERED: Non-Formulary Item 1 EACH (Hydralazine Hcl [Hydralazine Hcl] 100 MG Tablet) PO SCH (09:00)
[2021-02-08] MEDS: Acetaminophen 325 MG TAB PO PRN ×2 (13:21→20:10)
[2021-02-08] MEDS: Sodium Chloride 0.65% Nasal 44 ML BOT EA NARE PRN ×2 (15:52→21:19)
[2021-02-08] MEDS: Melatonin 3 MG TAB PO PRN (20:10)
[2021-02-08] MEDS: Nicotine 21 MG PATCH TD SCH (20:11)
[2021-02-08 21:02] LABS: Vancomycin, Trough 16.3 ug/mL
[2021-02-09] MEDS: ceFAZolin Sodium/D5W 2 GM in Premix Bag 1 BAG IVPB SCH ×2 (01:13→10:33)
[2021-02-09 06:50] LABS: #Lymphocytes 1.2 thou/uL (1.20-3.40); #Monocytes 0.6 thou/uL (0.11-0.59); #Neutrophils 2.8 thou/uL (1.40-6.50); %Basophils 0.9 % (0.0-1.0); %Eosinophils 0.3 % (0.0-10.0); %Lymphocytes 25.8 % (21.0-51.0); %Monocytes 13.5 % (0.0-10.0); %Neutrophils 59.5 % (42.0-75.0); Mean Corpuscular HGB CONC 33.9 g/dL (32.0-36.0); Mean Corpuscular Volume 94.4 fL (78.0-98.0); Mean Platelet Volume 7.6 fL (7.4-10.4); Platelet Count 128 thou/uL (130-400); RBC Distribution Width 13.6 % (11.5-14.5); Red Blood Cell (RBC) Count 3.45 mill/uL (4.20-5.40); White Blood Cell (WBC) Count 4.8 thou/uL (4.8-10.8)
[2021-02-09 07:12] LABS: Anion Gap 7 mmol/L (10-20); BUN (Urea Nitrogen) 10 mg/dL (9.8-20.1); Calc. Creatinine Clearance 91 mL/min (70-130); Calcium 8.9 mg/dL (7.8-10.44); Carbon Dioxide 24 mmol/L (23-31); Chloride 110 mmol/L (98-107); Glucose 101 mg/dL (80-115); Potassium 3.4 mmol/L (3.5-5.1); Sodium 138 mmol/L (136-145)
[2021-02-09] MEDS: Losartan 25 MG TAB PO SCH (08:23)
[2021-02-09] MEDS: FLUoxetine HCl 20 MG CAP PO SCH (08:23)
[2021-02-09] MEDS: Famotidine/PF 20 mg/2ml Vial SLOW IVP SCH (08:23)
[2021-02-09] MEDS: Heparin 5,000 UNITS/ML VIAL SC SCH (08:23)
[2021-02-09] MEDS: Multivitamin W/ Minerals 1 TAB PO SCH (08:24)
[2021-02-09] MEDS: hydrALAZINE 25 MG TAB PO SCH (08:24)
[2021-02-09] MEDS: Amlodipine 5 MG TAB PO SCH (08:24)
[2021-02-09] MEDS: VANCOMYCIN 1.25 GM/250 ML BAG 1.25 GM in Premix Bag 1 BAG IVPB SCH (08:44)
[2021-02-09 12:00] VITALS: BP 147/99; TEMP 97.6
== END 2021-02-09 13:22 | disposition home or self-care (01) | DRG 603 ==
LOC: ERS 15:22 → T4-A 21:14 → OBSVTOIN 02-07 11:07
PROVIDERS: ADMIT Student in an Organized Health Care Education/Training Program; ATTEND Internal Medicine
DX: L02.413 Cutaneous abscess of right upper limb (principal); L03.317 Cellulitis of buttock; Z20.822 Contact with and (suspected) exposure to COVID-19; L03.113 Cellulitis of right upper limb; C50.912 Malignant neoplasm of unspecified site of left female breast; I10 Essential (primary) hypertension; F17.210 Nicotine dependence, cigarettes, uncomplicated; L02.32 Furuncle of buttock; Z88.5 Allergy status to narcotic agent; Z79.899 Other long term (current) drug therapy
CPT/HCPCS: 36415; 80048; 80053; 80202; 83605; 85025; 87040; 96365; 96367; 96375; A9579; J0360; J0692; J1644; J3370; J7050; S0028; U0003; U0005

== ENCOUNTER 2021-03-04 11:09 | Day surgery (SDC) | payer MEDICARE ==
[~2021-03-04 11:09] MED LIST changes: +CARBOPLATIN IVPB SCH; +DOCEtaxel 130 MG in Sodium Chloride 0.9% 250 ML 250 ML IVPB SCH; +Dexamethasone Sod Phosphate 20 MG in Sodium Chloride 0.9% 50 ML IVPB SCH; +PALONOSETRON HCL 0.05 MG/ML 5 ML VIAL IVP SCH; -PEGFILGRASTIM-JMDB 6 MG/0.6 ML SYRINGE ONE; -PEGFILGRASTIM-JMDB 6 MG/0.6 ML SYRINGE SQ SCH; +Pertuzumab 420 MG in Sodium Chloride 0.9% 250 ML 250 ML IVPB SCH; +SODIUM CHLORIDE 0.9% IVPB SCH; +TRASTUZUMAB ANNS IVPB SCH
[2021-03-04] MEDS ORDERED: PALONOSETRON HCL 0.05 MG/ML 5 ML VIAL ONE (11:17)
[2021-03-04] MEDS ORDERED: Sodium Chloride 0.9% 10 ML ONE (11:17)
[2021-03-04 11:35] VITALS: BP 142/71
== END 2021-03-04 15:40 | disposition home or self-care (01) ==
LOC: ONC/OP 11:09
PROVIDERS: ATTEND Internal Medicine Hematology & Oncology
DX: Z51.11 Encounter for antineoplastic chemotherapy (principal); C50.312 Malignant neoplasm of lower-inner quadrant of left female breast; Z88.5 Allergy status to narcotic agent
CPT/HCPCS: 96375; 96413; 96417; J1100; J1642; J2469; J7050; J9045; J9171; Q5117

== ENCOUNTER 2021-03-05 13:15 | Day surgery (SDC) | payer MEDICARE ==
[~2021-03-05 13:15] MED LIST changes: -CARBOPLATIN IVPB SCH; -DOCEtaxel 130 MG in Sodium Chloride 0.9% 250 ML 250 ML IVPB SCH; -Dexamethasone Sod Phosphate 20 MG in Sodium Chloride 0.9% 50 ML IVPB SCH; -PALONOSETRON HCL 0.05 MG/ML 5 ML VIAL IVP SCH; +PEGFILGRASTIM-JMDB 6 MG/0.6 ML SYRINGE SQ SCH; -Pertuzumab 420 MG in Sodium Chloride 0.9% 250 ML 250 ML IVPB SCH; -SODIUM CHLORIDE 0.9% IVPB SCH; -TRASTUZUMAB ANNS IVPB SCH
[2021-03-05] MEDS ORDERED: PEGFILGRASTIM-JMDB 6 MG/0.6 ML SYRINGE ONE (13:33)
[2021-03-05 14:42] VITALS: BP 132/78; TEMP 98
== END 2021-03-05 14:42 | disposition home or self-care (01) ==
LOC: ONC/OP 13:15
PROVIDERS: ATTEND Internal Medicine Hematology & Oncology
DX: Z76.89 Persons encountering health services in other specified circumstances (principal); C50.312 Malignant neoplasm of lower-inner quadrant of left female breast; Z88.5 Allergy status to narcotic agent
CPT/HCPCS: 96372; Q5108

== ENCOUNTER 2021-03-30 10:13 | Day surgery (SDC) | payer MEDICARE ==
[~2021-03-30 10:13] MED LIST changes: +CARBOPLATIN IVPB SCH; +DOCEtaxel 130 MG in Sodium Chloride 0.9% 250 ML 250 ML IVPB SCH; +PALONOSETRON HCL 0.05 MG/ML 5 ML VIAL IVP SCH; -PEGFILGRASTIM-JMDB 6 MG/0.6 ML SYRINGE SQ SCH; +Pertuzumab 420 MG in Sodium Chloride 0.9% 250 ML 250 ML IVPB SCH; +SODIUM CHLORIDE 0.9% IVPB SCH; +TRASTUZUMAB ANNS IVPB SCH
[2021-03-30] MEDS ORDERED: PALONOSETRON HCL 0.05 MG/ML 5 ML VIAL ONE (10:36)
[2021-03-30] MEDS ORDERED: CARBOplatin 450 MG in Sodium Chloride 0.9% 250 ML 250 ML IVPB SCH (10:45)
[2021-03-30] MEDS ORDERED: Sodium Chloride 0.9% 10 ML ONE ×2 (11:22)
[2021-03-30 14:56] VITALS: BP 146/69; TEMP 98.1
== END 2021-03-30 15:45 | disposition home or self-care (01) ==
LOC: ONC/OP 10:13
PROVIDERS: ATTEND Internal Medicine Hematology & Oncology
DX: Z51.11 Encounter for antineoplastic chemotherapy (principal); C50.312 Malignant neoplasm of lower-inner quadrant of left female breast; Z88.5 Allergy status to narcotic agent
CPT/HCPCS: 96375; 96413; 96417; J1100; J2469; J7050; J9045; J9171; Q5117

== ENCOUNTER 2021-03-31 13:02 | Day surgery (SDC) | payer MEDICARE ==
[~2021-03-31 13:02] MED LIST changes: -CARBOPLATIN IVPB SCH; -DOCEtaxel 130 MG in Sodium Chloride 0.9% 250 ML 250 ML IVPB SCH; -PALONOSETRON HCL 0.05 MG/ML 5 ML VIAL IVP SCH; +PEGFILGRASTIM-JMDB 6 MG/0.6 ML SYRINGE SQ SCH; -Pertuzumab 420 MG in Sodium Chloride 0.9% 250 ML 250 ML IVPB SCH; -SODIUM CHLORIDE 0.9% IVPB SCH; -TRASTUZUMAB ANNS IVPB SCH
[2021-03-31] MEDS ORDERED: PEGFILGRASTIM-JMDB 6 MG/0.6 ML SYRINGE ONE (13:11)
[2021-03-31 13:18] VITALS: BP 115/65; TEMP 97.5
== END 2021-03-31 13:18 | disposition home or self-care (01) ==
LOC: ONC/OP 13:02
PROVIDERS: ATTEND Internal Medicine Hematology & Oncology
DX: Z76.89 Persons encountering health services in other specified circumstances (principal); C50.312 Malignant neoplasm of lower-inner quadrant of left female breast; Z88.5 Allergy status to narcotic agent
CPT/HCPCS: 96372; Q5108

== ENCOUNTER 2021-05-11 10:21 | Day surgery (SDC) | payer MEDICARE, OTHER ==
[~2021-05-11 10:21] MED LIST changes: +CARBOPLATIN IVPB SCH; +DOCEtaxel 130 MG in Sodium Chloride 0.9% 250 ML 250 ML IVPB SCH; +PALONOSETRON HCL 0.05 MG/ML 5 ML VIAL IVP SCH; -PEGFILGRASTIM-JMDB 6 MG/0.6 ML SYRINGE SQ SCH; +Pertuzumab 420 MG in Sodium Chloride 0.9% 250 ML 250 ML IVPB SCH; +SODIUM CHLORIDE 0.9% IVPB SCH; +TRASTUZUMAB ANNS IVPB SCH
[2021-05-11] MEDS ORDERED: PALONOSETRON HCL 0.05 MG/ML 5 ML VIAL ONE (10:52)
[2021-05-11 11:05] VITALS: BP 137/76; TEMP 98.5
== END 2021-05-11 15:03 | disposition home or self-care (01) ==
LOC: ONC/OP 10:21
PROVIDERS: ATTEND Internal Medicine Hematology & Oncology
DX: Z51.11 Encounter for antineoplastic chemotherapy (principal); C50.312 Malignant neoplasm of lower-inner quadrant of left female breast; Z88.5 Allergy status to narcotic agent
CPT/HCPCS: 96375; 96413; 96417; J1100; J1642; J2469; J7050; J9045; J9171; Q5117